=== PATIENT | female | born 1985 | race American Indian/Alaskan Native ===

== ENCOUNTER 2019-03-25 16:49 | Emergency (ER) | payer BC ==
[2019-03-25] MEDS ORDERED: ASPIRIN 325 MG TAB PO ONE (17:03)
--- NOTE | 2019-03-25 17:21 | Event Note ---
ED Screening Note Date of service: 03/25/19 Time: 17:18 ED Screening Note: 33 chest pain that radiates to her left shoulder. Reports pain has been going on for 2 week. She was seen by cardiology. Has a holter monitor on. Having palpitation and racing heart beats. PMH None, meds none LMP 03/19/19. This initial assessment/diagnostic orders/clinical plan/treatment(s) is/are subject to change based on patients health status, clinical progression and re- assessment by fellow clinical providers in the ED. Further treatment and workup at subsequent clinical providers discretion. Patient/guardian urged not to elope from the ED as their condition may be serious if not clinically assessed and managed. Initial orders include:
[2019-03-25 17:45] LABS: Basophils % (Auto) 0.4 % (0.0-1.8); Eosinophils % (Auto) 0.2 % (0.0-4.3); Hematocrit 37.1 % (30.3-42.9); Lymphocytes # (Auto) 2.2 K/mm3 (1.2-5.4); Lymphocytes % (Auto) 19.9 % (13.4-35.0); Mean Corpuscular HGB Conc 32 % (30-34); Mean Corpuscular Volume 81 fl (79-97); Monocytes # (Auto) 0.6 K/mm3 (0.0-0.8); Monocytes % (Auto) 5.2 % (0.0-7.3); Platelet Count 396 K/mm3 (140-440); Red Blood Count 4.59 M/mm3 (3.65-5.03); Red Cell Distribution Width 17.8 % (13.2-15.2)
--- NOTE | 2019-03-25 18:04 | XRay Report ---
CHEST 1 VIEW 5:51 PM INDICATION / CLINICAL INFORMATION: Chest pain for 2 weeks. COMPARISON: None available. FINDINGS: SUPPORT DEVICES: The patient's brassiere was left in place. HEART / MEDIASTINUM: The heart size and pulmonary vasculature are normal. The aorta is normal in celina michelle. LUNGS / PLEURA: No significant pulmonary or pleural abnormality. No pneumothorax. ADDITIONAL FINDINGS: No significant additional findings. IMPRESSION: No acute findings. Signer Name: Gurdeep Zhong MD Signed: 03/25/2019 6:00 PM Workstation Name: [id number]
[2019-03-25 18:06] LABS: BUN/Creatinine Ratio 9; Blood Urea Nitrogen 6 mg/dL (7-17); Calcium 9.6 mg/dL (8.4-10.2); Hemolysis Index 17
[2019-03-25] MEDS ORDERED: KETOROLAC 30 MG/1 ML INJ IM ONE (19:51)
--- NOTE | 2019-03-26 00:18 | Cat Scan Report ---
CT ANGIOGRAPHY OF THE CHEST WITH INTRAVENOUS CONTRAST AND MULTIPLANAR MIP RECONSTRUCTIONS INDICATION / CLINICAL INFORMATION: Chest pain, shortness of breath and elevated d-dimer. TECHNIQUE: Axial CT images were obtained after injection of 100 cc Omnipaque 350 IV contrast using CTA protocol. 3 plane MIP / 3D reconstructions were produced. All CT scans at this location are performed using CT dose reduction for ALARA by means of automated exposure control. COMPARISON: None available. FINDINGS: There is good opacification of the pulmonary arterial system bilaterally without intraluminal filling defect to suggest acute PTE. The thoracic aorta is normal in caliber without dissection. The visuali zed coronary arteries are unremarkable. The tracheobronchial tree is normal. The lung parenchyma is clear. There is no evidence of adenopathy or effusion. The visualized upper abdomen is normal. There is mild spondylosis without acute osseous abnormality. IMPRESSION: No evidence of acute PTE or other significant abnormality. Signer Name: Gurdeep Zhong MD Signed: 03/26/2019 12:13 AM Workstation Name: [id number]
--- NOTE | 2019-03-26 00:35 | Emergency Department Report ---
ED Chest Pain HPI - General Chief Complaint: Chest Pain Stated Complaint: CHEST PAIN Time Seen by Provider: 03/25/19 17:18 Source: patient Mode of arrival: Ambulatory Limitations: No Limitations - History of Present Illness Initial Comments: Patient is a 33-year-old -[place] female with no past medical history except for chronic anxiety presents to the ED with persistent worsening left- sided chest pain that radiates to the left arm with intermittent shortness of breath for the last 1 week, but worse in the last 8 hours. Patient states that the pain has been constant and persistent underneath the left arm. Patient states that she has had multiple episodes of these symptoms throughout the week and that about 8 hours ago the symptoms got worse while she was at work. Patient denies dizziness, syncope, headache, change in vision, palpitations, abdominal pain, nausea, vomiting, back pain, neck pain, fever, chills, cough, diaphoresis or jaw pain, numbness and tingling or weakness of upper and lower extremities bilaterally. MD Complaint: chest pain, other (dyspnea, anxious) -: Sudden, hour(s) (8), week(s) (1) Onset: during rest, during exertion, awoke with symptoms Pain Location: substernal, left chest Pain Radiation: LUE Severity: moderate Severity scale (0 -10): 6 Quality: aching, sharp Consistency: constant Improves With: nothing Worsens With: inspiration, palpation, movement re: dyspnea. denies: nausea, vomting, diaphoresis, sense of impending doom Other Symptoms: denies: cough, fever, syncope, acid taste in mouth, leg swelling, palpitations, burping Treatments Prior to Arrival: none Aspirin use within the Past 7 Days: (0) No - Related Data On Oral Contraceptives: No Previous Rx's Medication Instructions Recorded Last Taken Type Cyclobenzaprine [Flexeril] 10 mg PO Q8H PRN #15 tablet 03/26/19 Unknown Rx Naproxen 500 mg PO Q12H PRN #30 tablet 03/26/19 Unknown Rx hydrOXYzine PAMOATE [Vistaril] 50 mg PO QHS PRN #30 capsule 03/26/19 Unknown Rx Allergies Allergy/AdvReac Type Severity Reaction Status Date / Time No Known Allergies Allergy Verified 03/25/19 17:03 Heart Score - HEART Score History: Slightly suspicious EKG: Normal Age: < 45 Risk factors: No known risk factors Troponin: < normal limit HEART Score: 0 - Critical Actions Critical Actions: 0-3 pts:0.9-1.7%risk of adverse cardiac event.Candidate for discharge ED Review of Systems ROS: Stated complaint: CHEST PAIN Other details as noted in HPI Constitutional: denies: chills, fever Eyes: denies: eye pain, eye discharge, vision change ENT: denies: ear pain, throat pain Respiratory: denies: cough, shortness of breath, wheezing Cardiovascular: chest pain (left sided chest pain), dyspnea on exertion. denies: palpitations, edema, syncope Endocrine: no symptoms reported Gastrointestinal: denies: abdominal pain, nausea, vomiting, diarrhea, constipation, hematochezia Genitourinary: denies: urgency, dysuria, frequency, hematuria, discharge, abnormal menses Musculoskeletal: denies: back pain, joint swelling, arthralgia Skin: denies: rash, lesions Neurological: denies: headache, weakness, numbness, paresthesias, confusion, vertigo Psychiatric: anxiety. denies: depression, auditory hallucinations, visual hallucinations Hematological/Lymphatic: denies: easy bleeding, easy bruising ED Past Medical Hx - Social History Smoking Status: Never Smoker Substance Use Type: None - Medications Home Medications: Home Medications Medication Instructions Recorded Confirmed Last Taken Type Cyclobenzaprine [Flexeril] 10 mg PO Q8H PRN #15 tablet 03/26/19 Unknown Rx Naproxen 500 mg PO Q12H PRN #30 tablet 03/26/19 Unknown Rx hydrOXYzine PAMOATE [Vistaril] 50 mg PO QHS PRN #30 capsule 03/26/19 Unknown Rx ED Physical Exam - General Limitations: No Limitations General appearance: alert, in no apparent distress, anxious - Head Head exam: Present: atraumatic, normocephalic, normal inspection - Eye Eye exam: Present: normal appearance, PERRL, EOMI Pupils: Present: normal accommodation - ENT ENT exam: Present: normal exam, normal orophraynx, mucous membranes moist, TM's normal bilaterally, normal external ear exam - Neck Neck exam: Present: normal inspection, full ROM - Respiratory Respiratory exam: Present: normal lung sounds bilaterally, chest wall tenderness (palpable reproducible left-sided chest wall tenderness). Absent: respiratory distress, wheezes, rales, accessory muscle use, decreased breath sounds, prolonged expiratory - Cardiovascular Cardiovascular Exam: Present: normal rhythm, tachycardia, normal heart sounds. Absent: systolic murmur, diastolic murmur, rubs, gallop - GI/Abdominal GI/Abdominal exam: Present: soft, normal bowel sounds. Absent: tenderness, guarding, rebound, hyperactive bowel sounds, hypoactive bowel sounds - Extremities Exam Extremities exam: Present: normal inspection, full ROM, normal capillary refill - Back Exam Back exam: Present: normal inspection, full ROM, vertebral tenderness. Absent: tenderness, CVA tenderness (R), CVA tenderness (L), muscle spasm, paraspinal tenderness - Neurological Exam Neurological exam: Present: alert, oriented X3, CN II-XII intact, normal gait, reflexes normal - Psychiatric Psychiatric exam: Present: normal affect, normal mood, anxious. Absent: suicidal ideation - Skin Skin exam: Present: warm, dry, intact, normal color. Absent: rash ED Course Vital Signs 03/25/19 03/25/19 03/26/19 17:18 20:06 01:02 Temperature 98.6 F Pulse Rate 112 H 78 Respiratory 16 20 18 Rate Blood Pressure 130/88 Blood Pressure 121/91 [Left] O2 Sat by Pulse 97 99 Oximetry JAGDISH score - Jagdish Score Age > 65: (0) No Aspirin use within the Past 7 Days: (0) No 3 or more CAD Risk Factors: (0) No 2 or more Angina events in past 24 hrs: (0) No Known CAD with more than 50% Stenosis: (0) No Elevated Cardiac Markers: (0) No ST Deviation Greater than 0.5mm: (0) No JAGDISH Score: 0 ED Medical Decision Making - Lab Data Result diagrams: 03/25/19 17:33 03/25/19 17:33 - EKG Data Rate: tachycardia - EKG Data 03/26/19 00:43 EKG shows sinus tachycardia with a ventricular rate of [address] or T- wave abnormalities. - Radiology Data Radiology results: report reviewed, image reviewed Findings [address] [address] Cat Scan Report Signed Patient: KATHY BENSON MR#: [id number] : 1985 Acct:[id number] Age/Sex: 33 / F ADM Date: 03/25/19 Loc: ED Attending Dr: Ordering Physician: FAMILIA VARMA Date of Service: 03/25/19 Procedure(s): CT angio chest Accession Number(s): [id number] cc: FAMILIA VARMA CT ANGIOGRAPHY OF THE CHEST WITH INTRAVENOUS CONTRAST AND MULTIPLANAR MIP RECONSTRUCTIONS INDICATION / CLINICAL INFORMATION: Chest pain, shortness of breath and elevated d-dimer. TECHNIQUE: Axial CT images were obtained after injection of 100 cc Omnipaque 350 IV contrast using CTA protocol. 3 plane MIP / 3D reconstructions were produced. All CT scans at this location are pe rformed using CT dose reduction for ALARA by means of automated exposure control. COMPARISON: None available. FINDINGS: There is good opacification of the pulmonary arterial system bilaterally without intraluminal filling defect to suggest acute PTE. The thoracic aorta is normal in caliber without dissection. The visualized coronary arteries are unremarkable. The tracheobronchial tree is normal. The lung parenchyma is clear. There is no evidence of adenopathy or effusion. The visualized upper abdomen is normal. There is mild spondylosis without acute osseous abnormality. IMPRESSION: No evidence of acute PTE or other significant abnormality. Signer Name: Gurdeep Zhong MD Signed: 03/26/2019 12:13 AM Workstation Name: [id number] Transcribed By: RT Dictated By: Gurdeep Zhong MD Electronically Authenticated By: Gurdeep Zhong MD Signed Date/Time: 03/26/1912 DD/ TD/TT: -- Findings [facility] [address] [place] [address] XRay Report Signed Patient: KATHY BENSON MR#: [id number] : 1985 Acct:[id number] Age/Sex: 33 / F ADM Date: 03/25/19 Loc: ED Attending Dr: Ordering Physician: ROSE SALDAÑA MD Date of Service: 03/25/19 Procedure(s): XR chest 1V ap Accession Number(s): [id number] cc: ROSE SALDAÑA MD Fluoro Time In Minutes: CHEST 1 VIEW 5:51 PM INDICATION / CLINICAL INFORMATION: Chest pain for 2 weeks. COMPARISON: None available. FINDINGS: SUPPORT DEVICES: The patient's brassiere was left in place. HEART / MEDIASTINUM: The heart size and pulmonary vasculature are normal. The aorta is normal in caliber. LUNGS / PLEURA: No significant pulmonary or pleural abnormality. No pne umothorax. ADDITIONAL FINDINGS: No significant additional findings. IMPRESSION: No acute findings. Signer Name: Gurdeep Zhong MD Signed: 03/25/2019 6:00 PM Workstation Name: [id number] Transcribed By: RT Dictated By: Gurdeep Zhong MD Electronically Authenticated By: Gurdeep Zhong MD Signed Date/Time: 03/25/19 1800 DD/ 57 TD/TT: - Medical Decision Making This is a 33-year-old -[place] female with no past medical history except for chronic anxiety presents to the ED with persistent worsening left- sided chest pain that radiates to the left arm with intermittent shortness of breath for the last 1 week, but worse in the last 8 hours. In the ED, patient is alert and oriented 3 and is not in distress but anxious. EKG shows sinus bradycardia with ventricular rate of [address] or T-wave abnormalities or pathological Q waves. Chest x-ray showed no cardiopulmonary abnormalities or pneumonitis or pleural effusion or pneumothorax. Lab test results were reviewed including the initial and repeat troponin levels which are all non- actionable except for d-dimer level that was elevated to 283.96. The chest CTA for PE rule out shows no evidence of acute PTE or other significant abnormality. The patient presented to the ED with chest pain and shortness of breath persistently and all lab tests results are unremarkable including imaging report. Cardiac enzymes are all unremarkable. CTA chest is negative for PE. Patient's Heart score is 0. The patient's JAGDISH score is also 0. The well's criteria was positive for tachycardia but the chest CTA was negative for PE. Patient's symptoms are likely due to musculoskeletal muscle strain given that the chest pain was reproducible by palpation of the chest wall and that the patient having an underlying chronic anxiety makes her symptoms appear life- threatening subjectivity. Patient was discharged home on pain medications and muscle relaxants and was referred to the systems software specialist erosion control specialist Dr. Mcbride for follow-up in 3-5 days. Patient is advised to contact Dr. Mcbride surface to schedule a follow-up appointment. Patient was advised to return to the ED immediately if symptoms get worse. - Differential Diagnosis ACS; PE; Costochondritis; Muscle strain; Anxiety; Pneumonia Critical care attestation.: If time is entered above; I have spent that time in minutes in the direct care of this critically ill patient, excluding procedure time. ED Disposition Clinical Impression: Left-sided chest wall pain, Shortness of breath, Anxiety as acute reaction to exceptional stress, Acute costochondritis Disposition: TO HOME OR SELFCARE Is pt being admited?: No Does the pt Need Aspirin: No Condition: Stable Instructions: Chest Pain (ED), Costochondritis (ED), Generalized Anxiety Disorder (ED) Additional Instructions: The Test results have been reviewed and are all unremarkable including cardiac related tests. All imaging tests including chest CT and chest x-ray are all unremarkable. Your symptoms are not due to cardiac pathology or blood clot to your lungs at this time. Your symptoms are likely due to musculoskeletal muscle strain of the chest, and worsening anxiety. Therefore take medications with food, drink plenty of fluids and follow up with your primary care physician in 3-5 days for reevaluation. Consider following up with the systems software specialist Dr. Mcbride in 3-5 days for reevaluation. Return to emergency department immediately if his symptoms get worse. Prescriptions: hydrOXYzine PAMOATE [Vistaril] 50 mg PO QHS PRN #30 capsule PRN Reason: Anxiety Cyclobenzaprine [Flexeril] 10 mg PO Q8H PRN #15 tablet PRN Reason: Muscle Spasm Naproxen 500 mg PO Q12H PRN #30 tablet PRN Reason: Pain , Severe (7-10) Referrals: HONEY CAPELLAN MD [Primary Care Provider] - 3-5 Days IVÁN MCBRIDE MD [Staff Physician] - 3-5 Days Forms: Work/School Release Form(ED) Time of Disposition: 00:37 Print Language: SYRIAN
[2019-03-26] MEDS ORDERED: LORazepam 2 MG/ML VIAL IV ONE (00:42)
[2019-03-26 01:03] VITALS: BP 121/91
== END 2019-03-26 01:10 | disposition home or self-care (01) ==
LOC: ED 16:49
DX: M94.0 Chondrocostal junction syndrome [Tietze] (principal); R06.02 Shortness of breath
CPT/HCPCS: 36415; 71045; 71275; 80048; 84484; 85025; 85379; 93005; 93010; 96372; 96374; 99285; J1885; J2060; Q9967

== ENCOUNTER 2019-04-02 12:24 | Emergency (ER) | payer BC ==
--- NOTE | 2019-04-02 12:37 | Emergency Department Report ---
Blank Doc - Documentation Documentation: 33-year-old female that presents with chest pain and n/v. Denies any SOB. This initial assessment/diagnostic orders/clinical plan/treatment(s) is/are subject to change based on patient's health status, clinical progression and re- assessment by fellow clinical providers in the ED. Further treatment and workup at subsequent clinical providers discretion. Patient/guardians urged not to elope from the ED as their condition may be serious if not clinically assessed and managed. Initial orders include: 1- Patient sent to [facility] for further evaluation and treatment 2- labs 3- EKG
[2019-04-02 14:10] LABS: Basophils # (Auto) 0.1 K/mm3 (0.0-0.1); Basophils % (Auto) 0.6 % (0.0-1.8); Eosinophils # (Auto) 0.1 K/mm3 (0.0-0.4); Eosinophils % (Auto) 0.5 % (0.0-4.3); Hematocrit 36.9 % (30.3-42.9); Hemoglobin 11.8 gm/dl (10.1-14.3); Mean Corpuscular HGB Conc 32 % (30-34); Mean Corpuscular Volume 82 fl (79-97); Monocytes # (Auto) 0.8 K/mm3 (0.0-0.8); Monocytes % (Auto) 7.7 % (0.0-7.3); Platelet Count 358 K/mm3 (140-440); Red Blood Count 4.48 M/mm3 (3.65-5.03); Red Cell Distribution Width 16.8 % (13.2-15.2)
[2019-04-02 14:34] LABS: Alanine Aminotransferase 17 units/L (7-56); Albumin 4.2 g/dL (3.9-5); BUN/Creatinine Ratio 6; Blood Urea Nitrogen 5 mg/dL (7-17); Calcium 9.6 mg/dL (8.4-10.2); Hemolysis Index 6
--- NOTE | 2019-04-02 15:14 | XRay Report ---
ABDOMEN 3 VIEW(S) INDICATION / CLINICAL INFORMATION: cp/nv. COMPARISON: None available. FINDINGS: TUBES / LINES: None. BOWEL GAS PATTERN: No significant abnormality. FREE AIR / EXTRALUMINAL GAS: None seen. ADDITIONAL FINDINGS: No significant additional findings. LUNGS: Visualized lungs show no significant abnormality. IMPRESSION: 1. No significant abnormality. Signer Name: Esther Dean MD Signed: 04/02/2019 3:10 PM Workstation Name: [id number]
[2019-04-02 15:19] LABS: Bilirubin,Urine NEG (Negative); Blood,Urine NEG (Negative); Color,Urine Yellow (Yellow); Mucus,Urine FEW /HPF; Protein,Urine <15 mg/dL mg/dL (Negative); Urobilinogen,Urine < 2.0 mg/dL (<2.0)
[2019-04-02] MEDS ORDERED: LORazepam 1 MG TAB PO ONE (17:36)
[2019-04-02 18:25] LABS: INR 1.07 (0.87-1.13)
[2019-04-02] MEDS ORDERED: KETOROLAC 30 MG/1 ML INJ IM ONE (18:50)
--- NOTE | 2019-04-02 18:53 | Emergency Department Report ---
ED Chest Pain HPI - General Chief Complaint: Chest Pain Stated Complaint: CHEST PAIN/VOMITING Time Seen by Provider: 04/02/19 12:35 Source: patient Mode of arrival: Ambulatory Limitations: No Limitations - History of Present Illness Initial Comments: 33-year-old female with history of anxiety presents to ED with chest pain since last night. Patient reports sharp midsternal chest pain at rest. Patient reported she woke up this morning with nausea and vomiting, reports a couple of loose stools as well. She reports continued chest pain with numbness of bilateral hands. Patient states she has had increased anxiety over the past few days. Patient admits to not taking her BuSpar because it causes her to have palpitations. Patient does report having chest pain with her anxiety attacks. She has an appointment and later this week for a stress test with Trish Evans MD Complaint: chest pain -: Last night Onset: during rest Pain Location: substernal Pain Radiation: LUE Severity: mild Quality: sharp Consistency: intermittent Improves With: nothing Worsens With: nothing re: nausea, vomting Other Symptoms: palpitations. denies: leg swelling - Related Data Previous Rx's Medication Instructions Recorded Last Taken Type Cyclobenzaprine [Flexeril] 10 mg PO Q8H PRN #15 tablet 03/26/19 Unknown Rx Naproxen 500 mg PO Q12H PRN #30 tablet 03/26/19 Unknown Rx hydrOXYzine PAMOATE [Vistaril] 50 mg PO QHS PRN #30 capsule 03/26/19 Unknown Rx Allergies Allergy/AdvReac Type Severity Reaction Status Date / Time No Known Allergies Allergy Verified 03/25/19 17:03 Heart Score - HEART Score History: Slightly suspicious EKG: Normal Age: < 45 Risk factors: No known risk factors Troponin: < normal limit HEART Score: 0 ED Review of Systems ROS: Stated complaint: CHEST PAIN/VOMITING Other details as noted in HPI Comment: All other systems reviewed and negative Constitutional: denies: chills, fever Respiratory: denies: shortness of breath Cardiovascular: chest pain Gastrointestinal: nausea, vomiting, diarrhea ED Past Medical Hx - Past Medical History Previous Medical History?: No - Surgical History Past Surgical History?: No - Social History Smoking Status: Never Smoker Substance Use Type: None - Medications Home Medications: Home Medications Medication Instructions Recorded Confirmed Last Taken Type Cyclobenzaprine [Flexeril] 10 mg PO Q8H PRN #15 tablet 03/26/19 Unknown Rx Naproxen 500 mg PO Q12H PRN #30 tablet 03/26/19 Unknown Rx hydrOXYzine PAMOATE [Vistaril] 50 mg PO QHS PRN #30 capsule 03/26/19 Unknown Rx ED Physical Exam - General Limitations: No Limitations General appearance: alert, in no apparent distress, obese - Head Head exam: Present: atraumatic, normocephalic - Eye Eye exam: Present: normal appearance - ENT ENT exam: Present: mucous membranes moist - Neck Neck exam: Present: normal inspection - Respiratory Respiratory exam: Present: normal lung sounds bilaterally, chest wall tenderness. Absent: respiratory distress - Cardiovascular Cardiovascular Exam: Present: regular rate, normal rhythm - GI/Abdominal GI/Abdominal exam: Present: soft. Absent: distended, tenderness - Extremities Exam Extremities exam: Present: normal inspection. Absent: pedal edema, calf tenderness - Neurological Exam Neurological exam: Present: alert, oriented X3 - Psychiatric Psychiatric exam: Present: anxious - Skin Skin exam: Present: warm, dry, intact, normal color ED Course Vital Signs 04/02/19 04/02/19 04/02/19 12:33 16:54 19:21 Temperature 97.8 F 97.9 F Pulse Rate 116 H 88 82 Respiratory 18 16 20 Rate Blood Pressure 153/94 Blood Pressure 119/72 127/63 [Left] O2 Sat by Pulse 100 100 99 Oximetry 04/02/19 19:28 Temperature Pulse Rate Respiratory 20 Rate Blood Pressure Blood Pressure [Left] O2 Sat by Pulse Oximetry JAGDISH score - Jagdish Score Age > 65: (0) No Aspirin use within the Past 7 Days: (0) No 3 or more CAD Risk Factors: (0) No 2 or more Angina events in past 24 hrs: (0) No Known CAD with more than 50% Stenosis: (0) No Elevated Cardiac Markers: (0) No ST Deviation Greater than 0.5mm: (0) No JAGDISH Score: 0 ED Medical Decision Making - Lab Data Result diagrams: 04/02/19 13:24 04/02/19 13:24 - EKG Data -: EKG Interpreted by Ok EKG shows normal: sinus rhythm, axis, intervals, QRS complexes, ST-T waves Rate: tachycardia - EKG Data Interpretation: no acute changes - Radiology Data Radiology results: report reviewed, image reviewed - Medical Decision Making - stress test scheduled for this Apr 07, / [facility] - work-up unremarkable; CXR, EKG, labs including D-dimer normal - pt feeling better following ativan and toradol - will d/c at this time - return precautions given - Differential Diagnosis anxiety, PE, ACS Critical care attestation.: If time is entered above; I have spent that time in minutes in the direct care of this critically ill patient, excluding procedure time. ED Disposition Clinical Impression: Chest pain, Anxiety Disposition: - TO HOME OR SELFCARE Is pt being admited?: No Condition: Stable Instructions: Chest Pain (ED), Anxiety (ED) Referrals: HONEY CAPELLAN MD [Primary Care Provider] - 3-5 Days PRIMARY MD ASTRID [Referring] - 3-5 Days [facility] [Provider Group] - 2-3 Days Forms: Work/School Release Form(ED) Time of Disposition: 18:52
[2019-04-02 19:23] VITALS: BP 127/63
== END 2019-04-02 19:56 | disposition home or self-care (01) ==
LOC: ED 12:24
DX: R07.89 Other chest pain (principal); R11.2 Nausea with vomiting, unspecified; R20.0 Anesthesia of skin
CPT/HCPCS: 36415; 74022; 80053; 81001; 83690; 84484; 84703; 85025; 85379; 85610; 85730; 93005; 93010; 96372; 99284; J1885

== ENCOUNTER 2019-04-10 21:42 | Emergency (ER) | payer BC ==
--- NOTE | 2019-04-10 21:54 | Emergency Department Report ---
Blank Doc - Documentation Documentation: 33-year-old female that presents with chest pain and cough. Patient was seen l ast week and stated symptoms has not resolved. This initial assessment/diagnostic orders/clinical plan/treatment(s) is/are subject to change based on patient's health status, clinical progression and re- assessment by fellow clinical providers in the ED. Further treatment and workup at subsequent clinical providers discretion. Patient/guardians urged not to elope from the ED as their condition may be serious if not clinically assessed and managed. Initial orders include: 1- Patient sent to [facility] for further evaluation and treatment 2- EKG 3- CXR
--- NOTE | 2019-04-10 22:59 | XRay Report ---
CHEST 2 VIEWS INDICATION / CLINICAL INFORMATION: cp/cough. COMPARISON: 03/25/2019 FINDINGS: SUPPORT DEVICES: None. HEART / MEDIASTINUM: No significant abnormality. LUNGS / PLEURA: No significant pulmonary or pleural abnormality. No pneumothorax. ADDITIONAL FINDINGS: No significant additional findings. IMPRESSION: 1. No acute findings. No interval change. Signer Name: Sydnie Guthrie MD Signed: 04/10/2019 10:54 PM Workstation Name: [id number]
[2019-04-11 01:32] VITALS: BP 108/65
[2019-04-11 01:51] LABS: Basophils # (Auto) 0.1 K/mm3 (0.0-0.1); Basophils % (Auto) 0.6 % (0.0-1.8); Eosinophils # (Auto) 0.1 K/mm3 (0.0-0.4); Eosinophils % (Auto) 1.3 % (0.0-4.3); Hematocrit 34.2 % (30.3-42.9); Hemoglobin 10.9 gm/dl (10.1-14.3); Lymphocytes # (Auto) 3.1 K/mm3 (1.2-5.4); Mean Corpuscular HGB Conc 32 % (30-34); Mean Corpuscular Volume 82 fl (79-97); Monocytes # (Auto) 0.8 K/mm3 (0.0-0.8); Monocytes % (Auto) 7.2 % (0.0-7.3); Platelet Count 330 K/mm3 (140-440); Red Blood Count 4.18 M/mm3 (3.65-5.03); Red Cell Distribution Width 16.3 % (13.2-15.2)
[2019-04-11 02:15] LABS: Alanine Aminotransferase 16 units/L (7-56); Albumin 3.9 g/dL (3.9-5); BUN/Creatinine Ratio 11; Blood Urea Nitrogen 9 mg/dL (7-17); Calcium 9.4 mg/dL (8.4-10.2); Hemolysis Index 5
--- NOTE | 2019-04-11 02:58 | Emergency Department Report ---
ED General Adult HPI - General Chief complaint: Chest Pain Stated complaint: CHEST PAIN,CONGESTED Time Seen by Provider: 04/10/19 21:55 Source: patient Mode of arrival: Ambulatory Limitations: No Limitations - History of Present Illness Initial comments: 33-year-old -[place] female with a known past medical history of anxiety his anxiety was recently restarted on her clonazepam and Lexapro since emergency department complaining of continued palpitations. She is having some issues with palpitations off and on for the last couple weeks she has been been under the care of cardiology whom she reports having Excess stress test, Holter monitor for 3 days, echocardiogram and advised her of no objective findings. Reports having continued pain off and on for the chest with a nonproductive cough and pain with certain movements to the chest C denies trauma. Reports no fever, chills, sweats no nausea, no vomiting, no diarrhea. She reports no foreign travel. Radiation: non-radiation Worsens with: movement Associated Symptoms: cough. denies: diaphoresis, headaches, loss of appetite, malaise, rash, syncope, weakness - Related Data Previous Rx's Medication Instructions Recorded Last Taken Type Cyclobenzaprine [Flexeril] 10 mg PO Q8H PRN #15 tablet 03/26/19 Unknown Rx Naproxen 500 mg PO Q12H PRN #30 tablet 03/26/19 Unknown Rx hydrOXYzine PAMOATE [Vistaril] 50 mg PO QHS PRN #30 capsule 03/26/19 Unknown Rx Ketorolac [Toradol] 10 mg PO Q6H PRN #14 tablet 04/11/19 Unknown Rx Allergies Allergy/AdvReac Type Severity Reaction Status Date / Time No Known Allergies Allergy Verified 03/25/19 17:03 ED Review of Systems ROS: Stated complaint: CHEST PAIN,CONGESTED Other details as noted in HPI Comment: All other systems reviewed and negative ED Past Medical Hx - Past Medical History Previous Medical History?: No - Surgical History Past Surgical History?: No - Social History Smoking Status: Never Smoker Substance Use Type: Alcohol - Medications Home Medications: Home Medications Medication Instructions Recorded Confirmed Last Taken Type Cyclobenzaprine [Flexeril] 10 mg PO Q8H PRN #15 tablet 03/26/19 Unknown Rx Naproxen 500 mg PO Q12H PRN #30 tablet 03/26/19 Unknown Rx hydrOXYzine PAMOATE [Vistaril] 50 mg PO QHS PRN #30 capsule 03/26/19 Unknown Rx Ketorolac [Toradol] 10 mg PO Q6H PRN #14 tablet 04/11/19 Unknown Rx ED Physical Exam - General Limitations: No Limitations General appearance: alert, in no apparent distress - Head Head exam: Present: atraumatic, normocephalic - Eye Eye exam: Present: normal appearance - ENT ENT exam: Present: mucous membranes moist - Neck Neck exam: Present: normal inspection - Respiratory Respiratory exam: Present: normal lung sounds bilaterally, chest wall tenderness (along the sternal border with palpation and some pain with both adduction as well.). Absent: respiratory distress - Cardiovascular Cardiovascular Exam: Present: regular rate, normal rhythm. Absent: systolic murmur, diastolic murmur, rubs, gallop - GI/Abdominal GI/Abdominal exam: Present: soft, normal bowel sounds. Absent: tenderness, guarding, rebound - Extremities Exam Extremities exam: Present: normal inspection - Back Exam Back exam: Present: normal inspection - Neurological Exam Neurological exam: Present: alert, oriented X3, CN II-XII intact, normal gait - Psychiatric Psychiatric exam: Present: normal affect, normal mood - Skin Skin exam: Present: warm, dry, intact, normal color. Absent: rash ED Course Vital Signs 04/10/19 04/10/19 04/11/19 21:45 21:52 01:15 Temperature 99.1 F 99.1 F Pulse Rate 95 H 93 H 76 Respiratory 18 18 18 Rate Blood Pressure 140/80 140/80 Blood Pressure 108/65 [Left] O2 Sat by Pulse 98 99 98 Oximetry ED Medical Decision Making - Lab Data Result diagrams: 04/11/19 01:34 04/11/19 01:34 - EKG Data EKG shows normal: sinus rhythm Rate: normal - EKG Data Interpretation: normal EKG - Radiology Data Radiology results: report reviewed (clear no acute processes) - Medical Decision Making This patient presents with chest pain that is very unlikely angina or acute coronary syndrome. The emergency department evaluation has not identified any cause for suspicion that this chest pain has a cardiac etiology. Based on their history, EKG (which showed no evidence of ischemia or infarction) and imaging, in addition to the patient's physical exam, I see no evidence at this time for a malignant etiology for the patient's chest pain. There is no acute evidence for pulmonary embolus, acute myocardial infarction, pneumothorax, Boerhaeve syndrome, cardiac tamponade, thoracic artery dissection, or any other emergent cardiac, pulmonary or aortic pathology. Given the low pre-test probability for cardiac etiology of chest pain and the absence of any sign of ischemia or infarction, discharge for outpatient follow-up and further evaluation is reasonable. I have explained to the patient that even though a cardiac problem is very unlikely, follow-up and further testing is required to reduce further the already small uncertainty that exists. Other life-threatening diagnoses have been considered. The patient understands the need to return immediately if their symptoms worsen or they develop any new symptoms, and not to engage in any significant exertional activity until follow-up is obtained. Critical care attestation.: If time is entered above; I have spent that time in minutes in the direct care of this critically ill patient, excluding procedure time. ED Disposition Clinical Impression: Chest pain, Intermittent palpitations Disposition: TO HOME OR SELFCARE Is pt being admited?: No Does the pt Need Aspirin: No Condition: Stable Instructions: Palpitations (ED), Chest Pain (ED), Costochondritis (ED) Additional Instructions: Review of laboratory findings today were all normal range as well as your EKG. The tenderness along her chest seems to be related to costochondral cartilages Prescriptions: Ketorolac [Toradol] 10 mg PO Q6H PRN #14 tablet PRN Reason: Pain Referrals: PRIMARY MD ASTRID [Primary Care Provider] - 3-5 Days YSABEL DODD MD [Staff Physician] - 3-5 Days
== END 2019-04-11 03:20 | disposition home or self-care (01) ==
LOC: ED 21:42
DX: R07.89 Other chest pain (principal); R00.2 Palpitations
CPT/HCPCS: 36415; 71046; 80053; 84443; 85025; 93005; 93010